=== PATIENT | male | born 1960 | race Caucasian/White ===

== ENCOUNTER 2023-02-17 12:11 | Emergency (ER) | payer BC, MEDICARE, SELFPAY ==
[2023-02-17 12:12] VITALS: BP 110/78; PULSE 108; RESP 14; TEMP 36.6; O2SAT 97
--- NOTE | 2023-02-17 12:45 | RAD_ITS ---
STUDY: X-RAY CHEST REASON FOR EXAM: Male, 62 years old. Dyspnea TECHNIQUE: PA and lateral views of the chest. COMPARISON: None. FINDINGS: Lungs are expanded with diffuse perihilar opacification suggesting bronchitis or perihilar infiltrates. Small bilateral pleural effusions are present. Follow-up recommended to assure resolution. Normal size heart. Normal mediastinum and andre. Normal visualized pulmonary arteries. Normal visualized aortic arch and descending thoracic aorta. There are diffuse degenerative changes of the visualized thoracic spine. Normal visualized ribs, clavicles, and shoulders. There is no demonstrated abnormality of the visualized soft tissue structures of the upper abdomen.-Neuro stimulator leads project over the lower thoracic spine RAD/Chest PA and Lateral IMPRESSION: Symmetric perihilar opacifications suggest CHF, bronchitis, or infiltrates. There are associated pleural effusions. Follow-up recommended to assure resolution Electronically Signed: Brian Truong MD at 13:18 EST ,
[2023-02-17 12:55] LABS: Absolute Lymphocyte Count 1.03 X10^3/uL (0.83-4.51); Absolute Neutrophil Count 3.9 X10^3/uL (2.0-7.7); Basophil# 0.09 X10^3/uL; Basophil% 1.6 % (0-1); Eosinophil# 0.16 X10^3/uL; Eosinophils% 2.8 % (0-5); Hematocrit 43.4 % (40-54); Hemoglobin 13.7 g/dL (13.0-16.5); Lymphocyte # 1.03 X10^3/ul (0.83-4.51); Lymphocyte % 18.2 % (19-41); Mean Corp Hgb Conc 31.6 g/dL (32-36); Mean Corpuscular Hgb 29.9 pg (27.0-32.0); Mean Corpuscular Volume 94.8 fL (80-94); Mean Platelet Vol. 10.4 fl (6.2-12.0); Monocyte# 0.46 X10^3/uL; Monocyte% 8.1 % (0-10); NRBC Flagged by Analyzer 0 % (0-5); Neutrophil # 3.89 X10^3/uL (2.7-7.7); Neutrophil % 68.9 % (47-70); Platelet Count 278 K/mm3 (150-450); RBC Distribution Width CV 15.1 % (11.6-14.6); RBC Distribution Width SD 51.5 fl (35.1-43.9); Red Blood Count 4.58 M/mm3 (4.6-6.2); White Blood Count 5.7 K/mm3 (4.4-11.0)
[2023-02-17 13:08] LABS: Anion Gap 6 (5-15); BUN 28 mg/dL (7-18); BUN/Creat Ratio 29.2 RATIO (10-20); Calcium,Total 9.3 mg/dL (8.5-10.1); Chloride 103 mmol/L (98-107); Creatinine, Serum 0.96 mg/dL (0.70-1.30); EST Glomerular Filtration Rate 85 mL/min (>60); Est Glom Filt Rate - Afr Amer 102 mL/min (>60); Glucose 169 mg/dL (74-106); Potassium 4.3 mmol/L (3.5-5.1); Sodium Level 136 mmol/L (136-145); Troponin-I HS 24 pg/mL (3.0-78.0)
[2023-02-17 13:33] VITALS: BP 108/71; PULSE 99; RESP 16; TEMP 36.9; O2SAT 92
--- NOTE | 2023-02-17 13:45 | EDS_ITS ---
HPI History of Present Illness Chief Complaint: Shortness of Breath [facility] Medical History (Updated 02/17/23 @ 14:[address] Ezequiel Jimenez MD) Diabetes Home Medications Oxycodone-Acetaminophn 5-325/5 1 - 2 tab PO BID 01/10/16 [History Last Taken Unknown] pregabalin 100 mg capsule (Lyrica) 100 mg PO TID 01/10/16 [History Last Taken 01/14/16 07:30] furosemide 20 mg tablet (Lasix) 20 mg PO DAILY #30 tabs 02/17/23 [Rx Last Taken Unknown] Allergy/AdvReac Type Severity Reaction Status Date / Time No Known Allergies Allergy Verified 02/17/23 12:12 Social History Smoking Status: Never smoker EXAM Physical Exam Const Vital Signs: 02/17/23 12:12 02/17/23 12:55 02/17/23 13:33 Temperature 98 F 98.5 F Temperature Source Temporal Oral Pulse Rate 108 H 99 Respiratory Rate 14 16 Respiratory Effort Short of Breath Respiratory Depth Normal Respiratory Pattern Normal Blood Pressure 110/78 108/71 Blood Pressure Mean 88 83 Pulse Ox 97 92 Oxygen Delivery Method Room Air Room Air MDM MDM MDM Narrative Medical decision making narrative: Second-degree there is right gluteal crease/proximal posterior right thigh. There is no evidence infection i.e. erythema, warmth induration or cloudy discharge. Since patient is diabetic we will obtain BMP to assess glucose and anion gap. CBC to assess white count differential. Because he complains of dyspnea is a poorly controlled diabetic we will obtain troponin to evaluate for anginal equivalent dyspnea. Chest x-ray to rule out any pulmonary cause or evidence of CHF i.e. or pneumonia. Lab Data Attestation: I reviewed the patient's lab results. Lab results narrative: CBC is unremarkable basic metabolic panel is marked for glucose of 169 with a normal CO2 anion gap. BUN to creatinine ratio is elevated at approximately 30- 1. Labs: Laboratory Results - last 24 hr 02/17/23 02/17/23 12:35 13:29 WBC 5.7 RBC 4.58 L Hgb 13.7 Hct 43.4 MCV 94.8 H MCH 29.9 MCHC 31.6 L RDW Std Deviation 51.5 H RDW Coeff of Conchis 15.1 H Plt Count 278 MPV 10.4 Immature Gran % (Auto) 0.400 Neut % (Auto) 68.9 Lymph % (Auto) 18.2 L Moody % (Auto) 8.1 Eos % (Auto) 2.8 Baso % (Auto) 1.6 H Absolute Neuts (auto) 3.9 Absolute Lymphs (auto) 1.03 Nucleated RBC % 0 Sodium 136 Potassium 4.3 Chloride 103 Carbon Dioxide 27.0 Anion Gap 6 BUN 28 H Creatinine 0.96 Est GFR (MDRD) Af Amer 102 Est GFR (MDRD) Non-Af 85 BUN/Creatinine Ratio 29.2 H Glucose 169 H Calcium 9.3 Troponin I High Sens 24 POC Glucose 150 H Radiography Chest X-Ray - ED: 2 View and Read by ED Physician (Chest x-ray was reviewed by me. Patient has interstitial fluffiness in the area of the right middle lobe. There may represent CHF. Since patient denies cough fever doubt pneumonia. There is small associated effusion noted on the right.) Diagnostic Testing: Clinical Impression(s) from Imaging Studies Chest X-Ray 02/17/23 12:45 IMPRESSION: Symmetric perihilar opacifications suggest CHF, bronchitis, or infiltrates. There are associated pleural effusions. Follow-up recommended to assure resolution Electronically Signed: Brian Truong MD at 13:18 EST , EKG Initial EKG: Attestation: I personally reviewed and interpreted this EKG as follows: Interpretation: Sinus Tachycardia (Medicine upon Tylenol rate is 102. VT interval is 194 ms. QRS duration 144 ms and has morphology of right bundle branch block. QT duration is 380 ms. [place] is to the left. The ST segment abnormality noted in the anterolateral leads is all likelihood due to the right bundle branch block. .) Treatment and Re-Evaluation :: Week of symptoms and normal troponin suspect this represents congestive heart failure. Patient will need outpatient follow-up. He is not on a diuretic will discharge with prescription for Lasix. He also needs to keep his appointment with wound center for these stage II decubitus noted near the right buttocks crease/posterior proximal right thigh. Discharge Plan Triage Chief Complaint: Shortness of Breath ED Provider: Ezequiel Jimenez Dx/Rx/DC Orders Clinical Impression: Decubitus ulcer of buttock, stage 2, Congestive heart failure, Controlled type 2 diabetes mellitus with hyperglycemia, Pleural effusion, right Instructions: ED Heart Failure, Congestive (CHF), ED Pressure Injury, Simple Prescriptions: New furosemide [Lasix] 20 mg tablet 20 mg PO DAILY Qty: 30 0RF No Action pregabalin [Lyrica] 100 MG capsule 100 mg PO TID Oxycodone-Acetaminophn 5-325/5 1 - 2 tab PO BID Primary Care Provider: Damián Garcia Referrals: Damián Garcia MD [Primary Care Provider] - 5-7 Days Disposition Disposition: Home, Self Care
[2023-02-17 13:48] LABS: Bedside Glucose 150 mg/dL (74-106)
[2023-02-17 14:11] VITALS: BP 117/87; PULSE 101; PULSE 102; RESP 16; O2SAT 95
== END 2023-02-17 15:00 | disposition home or self-care (01) ==
PROVIDERS: Emergency Provider Emergency Medicine; PCP Family Medicine; Visit Provider Emergency Medicine
DX: I50.9 Heart failure, unspecified (principal); L89.312 Pressure ulcer of right buttock, stage 2; E11.65 Type 2 diabetes mellitus with hyperglycemia; Z79.899 Other long term (current) drug therapy
CPT/HCPCS: 71046; 80048; 82962; 84484; 85025; 93005; 99284

== ENCOUNTER 2023-02-24 09:47 | Outpatient (RCR) | payer BC, MEDICARE, SELFPAY ==
[2023-02-24 10:21] VITALS: BP 129/78; PULSE 106; RESP 18; TEMP 36.1; BMI 41.5
--- NOTE | 2023-02-24 13:13 | PCM.WC.HP ---
History of Present Illness Date of Service: 02/24/23 Chief Complaint: Stage II right ischial pressure ulceration History of Wound: This is a 62-year-old obese diabetic male with a history of spinal cord injury which resulted from lumbar disc surgery more than 20 years ago. As result, the patient's mobility has been severely restricted, and he spends a great time each day sitting in his wheelchair. He has difficulty ambulating, though is able to drive an automobile. Approximately 10 weeks prior to his current admission, patient developed an ulceration in the right ischial area. He and family members have been treating with topical antibiotic ointment. He lives alone, but has nearby family members who are able to assist him in his daily needs. In addition to diabetes mellitus, the patient also suffers from multiple other pre-existing medical conditions, which are listed below. The patient has recently undergone laboratory studies, performed on 02/17/2023, with results as follows: White blood count 5.7, hemoglobin 13.7, hematocrit 43.4, platelets 278,000, sodium 136, potassium 4.3, chloride 103, BUN 28, creatinine 0.96, glucose 169, calcium 9.3, glucose 150. A recent chest x-ray has revealed bilateral small pleural effusions. An EKG revealed sinus tachycardia, left axis deviation, right bundle branch block, and an infarct of indeterminate age. REPLACED BY [facility] Medical History Debility Diabetes History of spinal cord injury Hyperlipidemia Immobility Lumbar radiculopathy, chronic Morbid obesity with BMI of 40.0-44.9, adult Neurogenic bladder Obstructive sleep apnea Peripheral neuropathy Pressure ulcer of ischium, stage 2 Urinary incontinence Home Medications Oxycodone-Acetaminophn 5-325/5 1 - 2 tab PO BID 01/10/16 [History Last Taken Unknown] pregabalin 100 mg capsule (Lyrica) 100 mg PO TID 01/10/16 [History Last Taken 01/14/16 07:30] furosemide 20 mg tablet (Lasix) 20 mg PO DAILY #30 tabs 02/17/23 [Rx Last Taken Unknown] Allergy/AdvReac Type Severity Reaction Status Date / Time No Known Allergies Allergy Verified 02/17/23 12:12 Surgical History History of back surgery History of rotator cuff surgery S/P ORIF (open reduction internal fixation) fracture Social History (Updated 02/24/23 @ 13:[address] Ant Bryan MD) Smoking Status: Never smoker Smokeless tobacco user: chewing tobacco Vital Signs Vital Signs Vital Signs: 02/24/23 10:21 Temperature 97 F L Temperature Source Temporal Pulse Rate 106 H Respiratory Rate 18 Blood Pressure 129/78 H Blood Pressure Mean 95 Blood Pressure Source Monitor Blood Pressure Position Supine Blood Pressure Location Right Arm Oxygen Delivery Method Room Air Weight Weight: 290 lb Body Mass Index (BMI) 41.5 Physical Exam Const alert, oriented x3 and no apparent distress Constitutional Narrative: Debility is noted. Patient appears to be somewhat physically deconditioned. General Appearance: cooperative, comfortable and well developed Orientation / Consciousness: awake, oriented to person, oriented to place and oriented to time HEENT normocephalic and head/scalp atraumatic Head and Scalp: normal to inspection, normocephalic and atraumatic External Ear: external ears normal Eyes PERRL and EOMs intact bilaterally General Eye: normal appearance of both eyes Resp normal respiratory effort, normal air movement, no retractions and no use of accessory muscles Effort and Inspection: able to speak in complete sentences Extremity no calf tenderness General Extremity: Negative for clubbing or cyanosis Skin Wound Narrative: Inspection of the buttock area reveals a stage II right ischial pressure ulceration. It is generally pink and healthy in appearance. There is no associated erythema. There is no obvious infection or cellulitis. Dimensions are documented elsewhere. Neuro oriented x3 and CN's II-XII intact bilaterally Sensorium / Orientation: awake, alert, oriented to person, oriented to place and oriented to time Psych Appearance: grossly normal and appropriate Attitude: calm Activity / Motor Behavior: appropriate eye contact Speech: normal speech Mood & Affect: euthymic mood Thought Process: normal thought process Thought Content: normal thought content Attention / Concentration: attention grossly intact Debridement Note Debridement Note No debridement was completed: No debridement was completed today Post-Debridement Measurements and Additional Note: Post-Debridement Measurements/Treatment WC - Nurse 1 - General Ulcer Assessment Start: 02/24/23 10:07 Freq: Status: Active Protocol: [email or web address] Activity Type Activity Date Activity User E-sign Co-sign Detail Recorded Client Recorded Date Recorded By Document 02/24/23 10:21 MT Desktop 02/24/23 10:32 NM 02/24/23 10:21 - Today's Visit Information Type of service Initial Visit Arrival Mode Ambulatory Accompanied by Suzi Patient Identification Verified (Name & Yes ) Safety Precautions Fall Prevention Finger Stick Blood Sugar(mg/dl) (if 131 indicated): Blood Sugar Stated by Patient Height and Weight Height 5 ft 10 in Weight 290 lb Weight in Pounds 290.0 lbs Weight Measurement Method Stated by Patient Body Mass Index (BMI) 41.5 BMI Classification Obese BSA - Zane 2.44 Vital Signs Temperature (97.8 F-99.1 F) 97 F L Temperature Source Temporal Pulse Rate (60-100) 106 H Pulse Location Monitor Respiratory Rate (12-18) 18 Respiratory rate source Observation Oxygen Delivery Method Room Air Blood Pressure (90/60-120/80) 129/78 H Blood Pressure Mean 95 Source Monitor Position Supine Blood Pressure Location Right Arm History Since Last Visit- (Skip if this is Patient's initial visit) Has dressing in place as prescribed No Has compression in place as prescribed N/A Has offloadiing in place as prescribed N/A Experienced any changes in pain level or No management Left Footwear Regular Shoe Right Footwear Regular Shoe Pain Scale: 0-10 Numeric Is Patient Pain Free? Yes - Nurse 1 - General Ulcer Measurement Start: 02/24/23 10:07 Freq: Status: Active Protocol: Activity Type Activity Date Activity User E-sign Co-sign Detail Recorded Client Recorded Date Recorded By Document 02/24/23 10:21 NM [employer] 02/24/23 10:32 NM 02/24/23 10:21 Wound Center Nurse 1 #1 R Lower Buttock -Current Size (cm) - Length 4 -Current Size (cm) - Width 3 -Current Size (cm) - Depth 0.1 -Total Square Cm 12 -Date of Last Picture (Recall this 02/24/23 field) -Photo Taken Yes -Tunneling Yes -Tunneling Position (O'clock) 1 -Tunneling Distance (cm) 0.2 -Undermining/Tunneling No -Circular Undermining No -Exudate Amt Medium -Exudate Type Serosanguineous -Wound Margin Flat & Intact -Granulation Amt Large (67-100%) -Granulation Quality Pale,[place] -Slough/Fibrin No -Texture (Traci-wound Skin Appearance) Assessed -Moisture (Traci-wound Skin Appearance) Assessed, Maceration -Color (Tarci-wound Skin Appearance) Assessed -Temperature (Traci-wound Skin No Abnormality Appearance) (Pt Warm) -Tenderness on Palpation (Traci-wound No Skin Appearance) -Ulcer Cleansing Soap and Water -Foul Odor after Cleansing No -Anesthetic Used 5% Lidocaine Gel Lower Limb Edema Present NA WC - Nurse 2 - General Ulcer CM Notes Start: 02/24/23 10:07 Freq: Status: Active Protocol: Activity Type Activity Date Activity User E-sign Co-sign Detail Recorded Client Recorded Date Recorded By Document 02/24/23 12:46 PL [email or web address] 02/24/23 12:48 PL 02/24/23 12:46 Wound Center Nurse 2 #1 R Lower Buttock -Time 10:40 -Correct Patient Yes -Correct Side, Site, Position Yes -Correct Procedure Yes -Procedure Performed No -Post Debridement (cm) - Length 4.0 -Post Debridement (cm) - Width 3.0 -Post Debridement (cm) - Depth 0.1 -Total Square (Post) (cm) 12.00 -Tunneling No -Undermining/Tunneling No -Circular Undermining No -Wound/Ulcer Outcome Not Healed -Ulcer Cleansing Rinsed/ Irrigated with Saline -Foul Odor after Cleansing No -Bioengineered Tissue No Pain Scale: 0-10 Numeric Is Patient Pain Free? Yes - Nurse 3 - General Ulcer D/C NN Start: 02/24/23 10:07 Freq: Status: Active Protocol: Activity Type Activity Date Activity User E-sign Co-sign Detail Recorded Client Recorded Date Recorded By Document 02/24/23 12:46 PL [id number] 02/24/23 12:48 PL 02/24/23 12:46 Is Patient Pain Free? Yes Wound Care Center Nurse 3 #1 R Lower Buttock -Ulcer Cleansing Rinsed/ Irrigated with Saline -Foul Odor after Cleansing No -Primary Dressing Applied C Hydrogel ($), Mepilex Border -Mepilex Border 2 WC - Visit Discharge Discharge Condition Stable Ambulatory Status Wheelchair Transportation Private Auto Assessment/Plan Assessment/Plan (1) Pressure ulcer of ischium, stage 2: CODE(S): L89.302 - Pressure ulcer of unspecified buttock, stage 2 QUALIFIERS: Laterality: right Qualified Code(s): L89.312 - Pressure ulcer of right buttock, stage 2 (2) Controlled type 2 diabetes mellitus with hyperglycemia: CODE(S): E11.65 - Type 2 diabetes mellitus with hyperglycemia (3) Debility: CODE(S): R53.81 - Other malaise (4) Immobility: CODE(S): Z74.09 - Other reduced mobility (5) Congestive heart failure: CODE(S): I50.9 - Heart failure, unspecified (6) Obstructive sleep apnea: CODE(S): G47.33 - Obstructive sleep apnea (adult) (pediatric) (7) Hyperlipidemia: CODE(S): E78.5 - Hyperlipidemia, unspecified (8) Urinary incontinence: CODE(S): R32 - Unspecified urinary incontinence (9) Lumbar radiculopathy, chronic: CODE(S): M54.16 - Radiculopathy, lumbar region (10) Neurogenic bladder: CODE(S): N31.9 - Neuromuscular dysfunction of bladder, unspecified (11) Morbid obesity with BMI of 40.0-44.9, adult: CODE(S): E66.01 - Morbid (severe) obesity due to excess calories; Z68.41 - Body mass index [BMI] 40.0-44.9, adult (12) Peripheral neuropathy: CODE(S): G62.9 - Polyneuropathy, unspecified (13) History of spinal cord injury: CODE(S): Z87.828 - Personal history of other (healed) physical injury and trauma (14) History of back surgery: CODE(S): Z98.890 - Other specified postprocedural states (15) History of rotator cuff surgery: CODE(S): Z98.890 - Other specified postprocedural states (16) S/P ORIF (open reduction internal fixation) fracture: CODE(S): Z98.890 - Other specified postprocedural states; Z87.81 - Personal history of (healed) traumatic fracture PLAN: Plan This is a 62-year-old diabetic male who presented with a stage II right ischial pressure ulceration. He was noted to spend long hours each day sitting in his wheelchair. He has been counseled as to the appropriate offloading measures. These measures have been discussed with the patient and his niece, at the bedside, in great detail. He has been encouraged to reposition frequently. The decubitus position, supine or prone position, are all favorable to sitting. We are to request a Roho cushion for use when the patient has a need to sit or to remain in his wheelchair. Patient has been encouraged to optimize his nutritional intake, as well as to optimize his glycemic control. He is to avoid moisture accumulation in his undergarments when unable to control his urine. We are to implement the use of collagen hydrogel topically, which was applied on a daily basis. The patient and his niece have been instructed in the appropriate means of application. A foam dressing is to be also applied. The patient is to return for reevaluation in 1 week. Total time: 46 minutes
== END 2023-02-26 23:59 | disposition home or self-care (01) ==
LOC: WC 09:47
PROVIDERS: PCP Family Medicine; Referring Provider Family Medicine; Visit Provider Surgery
DX: L89.312 Pressure ulcer of right buttock, stage 2 (principal); I50.9 Heart failure, unspecified; E11.65 Type 2 diabetes mellitus with hyperglycemia; E11.42 Type 2 diabetes mellitus with diabetic polyneuropathy; E66.01 Morbid (severe) obesity due to excess calories; Z68.41 Body mass index [BMI] 40.0-44.9, adult; R32 Unspecified urinary incontinence; N31.9 Neuromuscular dysfunction of bladder, unspecified; Z74.09 Other reduced mobility; M54.16 Radiculopathy, lumbar region; R53.81 Other malaise; E78.5 Hyperlipidemia, unspecified; G47.33 Obstructive sleep apnea (adult) (pediatric); Z79.84 Long term (current) use of oral hypoglycemic drugs; Z79.899 Other long term (current) drug therapy
CPT/HCPCS: 99213; G0463

== ENCOUNTER 2023-03-17 10:30 | Outpatient (RCR) | payer BC, MEDICARE, SELFPAY ==
[2023-02-27 00:52] VITALS: BP 129/78; PULSE 106; RESP 18; TEMP 36.1; BMI 41.5
[2023-03-03 10:28] VITALS: BP 145/101; PULSE 118; RESP 20; TEMP 35.9; BMI 41.5
--- NOTE | 2023-03-03 13:17 | HP.PCM_ITS ---
History of Present Illness Date of Service: 03/03/23 Chief Complaint: Stage II right ischial pressure ulceration History of Wound: This is a 62-year-old obese diabetic male with a history of spinal cord injury which resulted from lumbar disc surgery more than 20 years ago. As result, the patient's mobility has been severely restricted, and he spends a great time each day sitting in his wheelchair. He has difficulty ambulating, though is able to drive an automobile. Approximately 10 weeks prior to his current admission, patient developed an ulceration in the right ischial area. He and family members have been treating with topical antibiotic ointment. He lives alone, but has nearby family members who are able to assist him in his daily needs. In addition to diabetes mellitus, the patient also suffers from multiple other pre-existing medical conditions, which are listed below. The patient has recently undergone laboratory studies, performed on 02/17/2023, with results as follows: White blood count 5.7, hemoglobin 13.7, hematocrit 43.4, platelets 278,000, sodium 136, potassium 4.3, chloride 103, BUN 28, creatinine 0.96, glucose 169, calcium 9.3, glucose 150. A recent chest x- ray has revealed bilateral small pleural effusions. An EKG revealed sinus tachycardia, left axis deviation, right bundle branch block, and an infarct of indeterminate age. [facility] Medical History Debility Diabetes History of spinal cord injury Hyperlipidemia Immobility Lumbar radiculopathy, chronic Morbid obesity with BMI of 40.0-44.9, adult Neurogenic bladder Obstructive sleep apnea Peripheral neuropathy Pressure ulcer of ischium, stage 2 Urinary incontinence Home Medications Oxycodone-Acetaminophn 5-325/5 1 - 2 tab PO BID 01/10/16 [History Last Taken Unknown] pregabalin 100 mg capsule (Lyrica) 100 mg PO TID 01/10/16 [History Last Taken 02/24/23] furosemide 20 mg tablet (Lasix) 20 mg PO DAILY #30 tabs 02/17/23 [Rx Last Taken 02/24/23] metformin 500 mg tablet 500 mg PO BID 02/24/23 [History Last Taken Unknown] Allergy/AdvReac Type Severity Reaction Status Date / Time No Known Allergies Allergy Verified 02/17/23 12:12 Surgical History History of back surgery History of rotator cuff surgery S/P ORIF (open reduction internal fixation) fracture Social History Smoking Status: Never smoker Smokeless tobacco user: chewing tobacco Vital Signs Vital Signs Vital Signs: 03/03/23 10:28 Temperature 96.7 F L Temperature Source Temporal Pulse Rate 118 H Respiratory Rate 20 H Blood Pressure 145/101 H Blood Pressure Mean 115 Blood Pressure Source Monitor Weight Weight: 290 lb Body Mass Index (BMI) 41.5 Physical Exam Const alert, oriented x3 and no apparent distress Constitutional Narrative: Debility is noted. Patient appears to be somewhat physically deconditioned. General Appearance: cooperative, comfortable and well developed Orientation / Consciousness: awake, oriented to person, oriented to place and oriented to time HEENT normocephalic and head/scalp atraumatic Head and Scalp: normal to inspection, normocephalic and atraumatic External Ear: external ears normal Eyes PERRL and EOMs intact bilaterally General Eye: normal appearance of both eyes Resp normal respiratory effort, normal air movement, no retractions and no use of accessory muscles Effort and Inspection: able to speak in complete sentences Extremity no calf tenderness General Extremity: Negative for clubbing or cyanosis Skin Wound Narrative: Inspection of the buttock area reveals a stage II right ischial pressure ulceration. It is generally pink and healthy in appearance. There is no associated erythema. There is no obvious infection or cellulitis. Dimensions are documented elsewhere. The ulceration visually appears to have increased in size since the patient's visit 1 week ago. Neuro oriented x3 and CN's II-XII intact bilaterally Sensorium / Orientation: awake, alert, oriented to person, oriented to place and oriented to time Psych Appearance: grossly normal and appropriate Attitude: calm Activity / Motor Behavior: appropriate eye contact Speech: normal speech Mood & Affect: euthymic mood Thought Process: normal thought process Thought Content: normal thought content Attention / Concentration: attention grossly intact Debridement Note Debridement Note Wound debrided: Stage II right ischial pressure ulceration Laterality: Right Wound Grade/Stage: Stage II Type of Debridement: Excisional debridement Anesthesia Used: 5% Lidocaine Gel Depth: Down to and including healthy tissue and in the subcutaneous layer Percentage of wound debrided: 100 Instrument Used: 5mm curette Severity: Fat Layer Exposed Bleeding Controlled with: Compression and gauze Patient tolerated procedure: Patient tolerated procedure well Post-Debridement Measurements and Additional Note: Post-Debridement Measurements/Treatment - Nurse 1 - General Ulcer Assessment Start: 03/03/23 10:28 Freq: Status: Active Protocol: SAHRA Activity Type Activity Date Activity User E-sign Co-sign Detail Recorded Client Recorded Date Recorded By Document 03/03/23 10:28 DL [employer] 03/03/23 10:33 DL 03/03/23 10:28 WC - Today's Visit Information Type of service Follow-up Visit (Physician/[employer] ) Arrival Mode Ambulatory Transfer Assistance None Height and Weight Body Mass Index (BMI) 41.5 BMI Classification Obese Vital Signs Temperature (97.8 F-99.1 F) 96.7 F L Temperature Source Temporal Pulse Rate (60-100) 118 H Pulse Location Monitor Respiratory Rate (12-18) 20 H Respiratory rate source Observation Blood Pressure (90/60-120/80) 145/101 H Blood Pressure Mean 115 Source Monitor History Since Last Visit- (Skip if this is Patient's initial visit) Have you changed medications since your No last visit? Any new allergies or adverse reactions No Had a fall/change in ADL's that may No increase risk of falls Signs or symptoms of abuse and/or No neglect since last visit Have you been in the hospital since your No last visit? Has dressing in place as prescribed Yes Has compression in place as prescribed N/A Has offloadiing in place as prescribed Yes Experienced any changes in pain level or No management Pain Scale: 0-10 Numeric Is Patient Pain Free? Yes - Nurse 1 - General Ulcer Measurement Start: 03/03/23 10:28 Freq: Status: Active Protocol: Activity Type Activity Date Activity User E-sign Co-sign Detail Recorded Client Recorded Date Recorded By Document 03/03/23 10:28 TAB [employer] 03/03/23 10:33 DL 03/03/23 10:28 Wound Center Nurse 1 #1 R Lower Buttock -Current Size (cm) - Length 2.7 -Current Size (cm) - Width 1.5 -Current Size (cm) - Depth 0.1 -Total Square Cm 4.05 -Exudate Amt Medium -Exudate Type Serosanguineous -Wound Margin Distinct, Outline Attached -Granulation Amt Medium (34-66%) -Granulation Quality Red -Necrosis Amt Medium (34-66%) -Necrotic Tissue Type Adherent Slough -Structure Exposed N/A -Texture (Traci-wound Skin Appearance) Scarring -Moisture (Traci-wound Skin Appearance) No Abnormality -Color (Traci-wound Skin Appearance) No Abnormality -Temperature (Traci-wound Skin No Abnormality Appearance) (Pt Warm) -Tenderness on Palpation (Traci-wound No Skin Appearance) -Ulcer Cleansing Not Cleansed -Foul Odor after Cleansing No -Anesthetic Used 5% Lidocaine Gel WC - Nurse 2 - General Ulcer CM Notes Start: 03/03/23 10:28 Freq: Status: Active Protocol: Activity Type Activity Date Activity User E-sign Co-sign Detail Recorded Client Recorded Date Recorded By Document 03/03/23 12:53 PL [id number] 03/03/23 12:54 PL 03/03/23 12:53 Wound Center Nurse 2 -Time 10:45 -Correct Patient Yes -Correct Side, Site, Position Yes -Correct Procedure Yes -Procedure Performed Yes -Type of Procedure Debridement -Clinical Debridement Subcutaneous -Tissue Removed Subcutaneous -Post Debridement (cm) - Length 2.7 -Post Debridement (cm) - Width 1.5 -Post Debridement (cm) - Depth 0.1 -Total Square (Post) (cm) 4.05 -Area of Debridement (cm) - Length 2.7 -Area of Debridement (cm) - Width 1.5 -Total Square (Area) (cm) 4.05 -Tunneling No -Undermining/Tunneling No -Circular Undermining No -Wound/Ulcer Outcome Not Healed -Ulcer Cleansing Rinsed/ Irrigated with Saline -Foul Odor after Cleansing No -Bioengineered Tissue No -Bleeding Controlled with Pressure -Treatment Response Procedure Tolerated Well -Debridement - Subq, 1st 20sq cm Yes Pain Scale: 0-10 Numeric Is Patient Pain Free? Yes WC - Nurse 3 - General Ulcer D/C NN Start: 03/03/23 10:28 Freq: Status: Active Protocol: Activity Type Activity Date Activity User E-sign Co-sign Detail Recorded Client Recorded Date Recorded By Document 03/03/23 11:31 DL [id number] 03/03/23 11:31 DL 03/03/23 11:31 Wound Care Center Nurse 3 #1 R Lower Buttock -Ulcer Cleansing Rinsed/ Irrigated with Saline -Foul Odor after Cleansing No -Primary Dressing Applied Mepilex Border, Promogran -Mepilex Border 1 -Promogran 1 Treatment Response Procedure Tolerated Well Pain Scale: 0-10 Numeric Is Patient Pain Free? Yes WC - Visit Discharge Discharge Condition Stable Ambulatory Status Walker, Wheelchair Transportation Private Auto Assessment/Plan Assessment/Plan (1) Pressure ulcer of ischium, stage 2: CODE(S): L89.302 - Pressure ulcer of unspecified buttock, stage 2 QUALIFIERS: Laterality: right Qualified Code(s): L89.312 - Pressure ulcer of right buttock, stage 2 (2) Controlled type 2 diabetes mellitus with hyperglycemia: CODE(S): E11.65 - Type 2 diabetes mellitus with hyperglycemia (3) Debility: CODE(S): R53.81 - Other malaise (4) Immobility: CODE(S): Z74.09 - Other reduced mobility (5) Congestive heart failure: CODE(S): I50.9 - Heart failure, unspecified (6) Obstructive sleep apnea: CODE(S): G47.33 - Obstructive sleep apnea (adult) (pediatric) (7) Hyperlipidemia: CODE(S): E78.5 - Hyperlipidemia, unspecified (8) Urinary incontinence: CODE(S): R32 - Unspecified urinary incontinence (9) Lumbar radiculopathy, chronic: CODE(S): M54.16 - Radiculopathy, lumbar region (10) Neurogenic bladder: CODE(S): N31.9 - Neuromuscular dysfunction of bladder, unspecified (11) Morbid obesity with BMI of 40.0-44.9, adult: CODE(S): E66.01 - Morbid (severe) obesity due to excess calories; Z68.41 - Body mass index [BMI] 40.0-44.9, adult (12) Peripheral neuropathy: CODE(S): G62.9 - Polyneuropathy, unspecified (13) History of spinal cord injury: CODE(S): Z87.828 - Personal history of other (healed) physical injury and trauma (14) History of back surgery: CODE(S): Z98.890 - Other specified postprocedural states (15) History of rotator cuff surgery: CODE(S): Z98.890 - Other specified postprocedural states (16) S/P ORIF (open reduction internal fixation) fracture: CODE(S): Z98.890 - Other specified postprocedural states; Z87.81 - Personal history of (healed) traumatic fracture PLAN: Plan This is a 62-year-old diabetic male who presented with a stage II right ischial pressure ulceration. He was noted to spend long hours each day sitting in his wheelchair. He has been counseled as to the appropriate offloading measures. These measures have been discussed with the patient in great detail. He has been encouraged to reposition frequently. The decubitus position, supine or prone position, are all favorable to sitting. We have arranged for the patient to receive a Roho cushion, which he has now been implementing while sitting. The patient has been encouraged to optimize his nutritional intake, as well as to optimize his glycemic control. He is to avoid moisture accumulation in his undergarments when unable to control his urine. We are to implement the use of Promogran, which will be applied topically on a daily basis. The patient and his family have been instructed in the appropriate means of application. A foam dressing is to be also applied. The patient is to return for reevaluation in 1 week. Total time: 26 minutes
[2023-03-17 10:42] VITALS: BP 139/92; PULSE 82; RESP 18; TEMP 35.5; BMI 41.5
--- NOTE | 2023-03-17 11:03 | HP.PCM_ITS ---
History of Present Illness Date of Service: 03/17/23 Chief Complaint: Stage II right ischial pressure ulceration History of Wound: This is a 62-year-old obese diabetic male with a history of spinal cord injury which resulted from lumbar disc surgery more than 20 years ago. As result, the patient's mobility has been severely restricted, and he spends a great time each day sitting in his wheelchair. He has difficulty ambulating, though is able to drive an automobile. Approximately 10 weeks prior to his current admission, the patient developed an ulceration in the right ischial area. He and family members have been treating with topical antibiotic ointment. He lives alone, but has nearby family members who are able to assist him in his daily needs. In addition to diabetes mellitus, the patient also suffers from multiple other pre-existing medical conditions, which are listed below. The patient has recently undergone laboratory studies, performed on 02/17/2023, with results as follows: White blood count 5.7, hemoglobin 13.7, hematocrit 43.4, platelets 278,000, sodium 136, potassium 4.3, chloride 103, BUN 28, creatinine 0.96, glucose 169, calcium 9.3, glucose 150. A recent chest x- ray has revealed bilateral small pleural effusions. An EKG revealed sinus tachycardia, left axis deviation, right bundle branch block, and an infarct of indeterminate age. [facility] Medical History Debility Diabetes History of spinal cord injury Hyperlipidemia Immobility Lumbar radiculopathy, chronic Morbid obesity with BMI of 40.0-44.9, adult Neurogenic bladder Obstructive sleep apnea Peripheral neuropathy Pressure ulcer of ischium, stage 2 Urinary incontinence Home Medications Oxycodone-Acetaminophn 5-325/5 1 - 2 tab PO BID 01/10/16 [History Last Taken Unknown] pregabalin 100 mg capsule (Lyrica) 100 mg PO TID 01/10/16 [History Last Taken 02/24/23] furosemide 20 mg tablet (Lasix) 20 mg PO DAILY #30 tabs 02/17/23 [Rx Last Taken 02/24/23] metformin 500 mg tablet 500 mg PO BID 02/24/23 [History Last Taken Unknown] Allergy/AdvReac Type Severity Reaction Status Date / Time No Known Allergies Allergy Verified 11/21/23 12:12 Surgical History History of back surgery History of rotator cuff surgery S/P ORIF (open reduction internal fixation) fracture Social History Smoking Status: Never smoker Smokeless tobacco user: chewing tobacco Vital Signs Vital Signs Vital Signs: 03/17/23 10:42 Temperature 96 F L Temperature Source Temporal Pulse Rate 82 Respiratory Rate 18 Blood Pressure 139/92 H Blood Pressure Mean 107 Blood Pressure Source Monitor Blood Pressure Position Semi-Fowlers Blood Pressure Location Left Arm Weight Weight: 290 lb Body Mass Index (BMI) 41.5 Physical Exam Const alert, oriented x3 and no apparent distress Constitutional Narrative: Debility is noted. Patient appears to be somewhat physically deconditioned. General Appearance: cooperative, comfortable and well developed Orientation / Consciousness: awake, oriented to person, oriented to place and oriented to time HEENT normocephalic and head/scalp atraumatic Head and Scalp: normal to inspection, normocephalic and atraumatic External Ear: external ears normal Eyes PERRL and EOMs intact bilaterally General Eye: normal appearance of both eyes Resp normal respiratory effort, normal air movement, no retractions and no use of accessory muscles Effort and Inspection: able to speak in complete sentences Extremity no calf tenderness General Extremity: Negative for clubbing or cyanosis Skin Wound Narrative: Inspection of the buttock area reveals a stage II right ischial pressure ulceration. It is generally pink and healthy in appearance. There is no associated erythema. There is no obvious infection or cellulitis. Dimensions are documented elsewhere. The ulceration has diminished in size since the fatoumata ramsey's visit 1 week ago. Neuro oriented x3 and CN's II-XII intact bilaterally Sensorium / Orientation: awake, alert, oriented to person, oriented to place and oriented to time Psych Appearance: grossly normal and appropriate Attitude: calm Activity / Motor Behavior: appropriate eye contact Speech: normal speech Mood & Affect: euthymic mood Thought Process: normal thought process Thought Content: normal thought content Attention / Concentration: attention grossly intact Debridement Note Debridement Note Wound debrided: Stage II right ischial pressure ulceration Laterality: Right Wound Grade/Stage: Stage II Type of Debridement: Excisional debridement Anesthesia Used: 5% Lidocaine Gel Depth: Down to and including healthy tissue and in the subcutaneous layer Percentage of wound debrided: 100 Instrument Used: 5mm curette Severity: Fat Layer Exposed Bleeding Controlled with: Compression and gauze Patient tolerated procedure: Patient tolerated procedure well Post-Debridement Measurements and Additional Note: Post-Debridement Measurements/Treatment WC - Nurse 1 - General Ulcer Assessment Start: 03/03/23 10:28 Freq: Status: Active Protocol: SAHRA Activity Type Activity Date Activity User E-sign Co-sign Detail Recorded Client Recorded Date Recorded By Document 03/03/23 10:28 DL Desktop 03/03/23 10:33 DL Document 03/17/23 10:42 RB Desktop 03/17/23 10:44 RB 03/03/23 03/17/23 10:28 10:42 WC - Today's Visit Information Type of service Follow-up Visit Follow-up Visit (Physician/OWNER CONSULTING ENGINEER (Physician/OWNER CONSULTING ENGINEER ) ) Arrival Mode Ambulatory Ambulatory Transfer Assistance None None Patient Identification Verified (Name & Yes ) Patient Requires Transmission-Based No Precautions Height and Weight Body Mass Index (BMI) 41.5 41.5 BMI Classification Obese Obese Vital Signs Temperature (97.8 F-99.1 F) 96.7 F L 96 F L Temperature Source Temporal Temporal Pulse Rate (60-100) 118 H 82 Pulse Location Monitor Monitor Respiratory Rate (12-18) 20 H 18 Respiratory rate source Observation Observation Blood Pressure (90/60-120/80) 145/101 H 139/92 H Blood Pressure Mean 115 107 Source Monitor Monitor Position Semi-Fowlers Blood Pressure Location Left Arm History Since Last Visit- (Skip if this is Patient's initial visit) Have you changed medications since your No No last visit? Any new allergies or adverse reactions No No Had a fall/change in ADL's that may No No increase risk of falls Signs or symptoms of abuse and/or No No neglect since last visit Have you been in the hospital since your No No last visit? Has dressing in place as prescribed Yes Yes Has compression in place as prescribed N/A No Has offloadiing in place as prescribed Yes No Experienced any changes in pain level or No No management Pain Scale: 0-10 Numeric Is Patient Pain Free? Yes Yes FRANCISCO Wall Nurse 1 - General Ulcer Measurement Start: 03/03/23 10:28 Freq: Status: Active Protocol: Activity Type Activity Date Activity User E-sign Co-sign Detail Recorded Client Recorded Date Recorded By Document 03/03/23 10:28 DL Desktop 03/03/23 10:33 DL Document 03/17/23 10:42 RB Desktop 03/17/23 10:44 RB 03/03/23 03/17/23 10:28 10:42 Wound Center Nurse 1 #1 R Lower Buttock -Combined with other wound No -Current Size (cm) - Length 2.7 2.5 -Current Size (cm) - Width 1.5 0.7 -Current Size (cm) - Depth 0.1 0.1 -Total Square Cm 4.05 1.75 -Tunneling No -Undermining/Tunneling No -Circular Undermining No -Exudate Amt Medium Medium -Exudate Type Serosanguineous Serosanguineous -Wound Margin Distinct, Distinct, Outline Outline Attached Attached -Granulation Amt Medium (34-66%) Medium (34-66%) -Granulation Quality [place] -Slough/Fibrin Yes -Necrosis Amt Medium (34-66%) Medium (34-66%) -Necrotic Tissue Type Adherent Slough Adherent Slough -Structure Exposed N/A N/A -Texture (Traci-wound Skin Appearance) Scarring Assessed, Scarring -Moisture (Traci-wound Skin Appearance) No Abnormality Assessed -Color (Traci-wound Skin Appearance) No Abnormality Assessed -Temperature (Traci-wound Skin No Abnormality No Abnormality Appearance) (Pt Warm) (Pt Warm) -Tenderness on Palpation (Traci-wound No No Skin Appearance) -Ulcer Cleansing Not Cleansed Wound Cleanser -Foul Odor after Cleansing No No -Anesthetic Used 5% Lidocaine 5% Lidocaine Gel Gel WC - Nurse 2 - General Ulcer CM Notes Start: 03/03/23 10:28 Freq: Status: Active Protocol: Activity Type Activity Date Activity User E-sign Co-sign Detail Recorded Client Recorded Date Recorded By Document 03/03/23 12:53 PL [id number] 03/03/23 12:54 PL 03/03/23 12:53 Wound Center Nurse 2 -Time 10:45 -Correct Patient Yes -Correct Side, Site, Position Yes -Correct Procedure Yes -Procedure Performed Yes -Type of Procedure Debridement -Clinical Debridement Subcutaneous -Tissue Removed Subcutaneous -Post Debridement (cm) - Length 2.7 -Post Debridement (cm) - Width 1.5 -Post Debridement (cm) - Depth 0.1 -Total Square (Post) (cm) 4.05 -Area of Debridement (cm) - Length 2.7 -Area of Debridement (cm) - Width 1.5 -Total Square (Area) (cm) 4.05 -Tunneling No -Undermining/Tunneling No -Circular Undermining No -Wound/Ulcer Outcome Not Healed -Ulcer Cleansing Rinsed/ Irrigated with Saline -Foul Odor after Cleansing No -Bioengineered Tissue No -Bleeding Controlled with Pressure -Treatment Response Procedure Tolerated Well -Debridement - Subq, 1st 20sq cm Yes Pain Scale: 0-10 Numeric Is Patient Pain Free? Yes - Nurse 3 - General Ulcer D/C NN Start: 03/03/23 10:28 Freq: Status: Active Protocol: Activity Type Activity Date Activity User E-sign Co-sign Detail Recorded Client Recorded Date Recorded By Document 03/03/23 11:31 DL [id number] 03/03/23 11:31 DL 03/03/23 11:31 Wound Care Center Nurse 3 #1 R Lower Buttock -Ulcer Cleansing Rinsed/ Irrigated with Saline -Foul Odor after Cleansing No -Primary Dressing Applied Mepilex Border, Promogran -Mepilex Border 1 -Promogran 1 Treatment Response Procedure Tolerated Well Pain Scale: 0-10 Numeric Is Patient Pain Free? Yes - Visit Discharge Discharge Condition Stable Ambulatory Status Walker, Wheelchair Transportation Private Auto Assessment/Plan Assessment/Plan (1) Pressure ulcer of ischium, stage 2: CODE(S): L89.302 - Pressure ulcer of unspecified buttock, stage 2 QUALIFIERS: Laterality: right Qualified Code(s): L89.312 - Pressure ulcer of right buttock, stage 2 (2) Controlled type 2 diabetes mellitus with hyperglycemia: CODE(S): E11.65 - Type 2 diabetes mellitus with hyperglycemia (3) Debility: CODE(S): R53.81 - Other malaise (4) Immobility: CODE(S): Z74.09 - Other reduced mobility (5) Congestive heart failure: CODE(S): I50.9 - Heart failure, unspecified (6) Obstructive sleep apnea: CODE(S): G47.33 - Obstructive sleep apnea (adult) (pediatric) (7) Hyperlipidemia: CODE(S): E78.5 - Hyperlipidemia, unspecified (8) Urinary incontinence: CODE(S): R32 - Unspecified urinary incontinence (9) Lumbar radiculopathy, chronic: CODE(S): M54.16 - Radiculopathy, lumbar region (10) Neurogenic bladder: CODE(S): N31.9 - Neuromuscular dysfunction of bladder, unspecified (11) Morbid obesity with BMI of 40.0-44.9, adult: CODE(S): E66.01 - Morbid (severe) obesity due to excess calories; Z68.41 - Body mass index [BMI] 40.0-44.9, adult (12) Peripheral neuropathy: CODE(S): G62.9 - Polyneuropathy, unspecified (13) History of spinal cord injury: CODE(S): Z87.828 - Personal history of other (healed) physical injury and trauma (14) History of back surgery: CODE(S): Z98.890 - Other specified postprocedural states (15) History of rotator cuff surgery: CODE(S): Z98.890 - Other specified postprocedural states (16) S/P ORIF (open reduction internal fixation) fracture: CODE(S): Z98.890 - Other specified postprocedural states; Z87.81 - Persona l history of (healed) traumatic fracture PLAN: Plan This is a 62-year-old diabetic male who presented with a stage II right ischial pressure ulceration. He was noted to spend long hours each day sitting in his wheelchair. He has been counseled as to the appropriate offloading measures. These measures have been discussed with the patient in great detail. He has been encouraged to reposition frequently. The decubitus position, supine or prone position, are all favorable to sitting. We have arranged for the patient to receive a Roho cushion, which he has now been implementing while sitting. The patient has been encouraged to optimize his nutritional intake, as well as to optimize his glycemic control. He is to avoid moisture accumulation in his undergarments when unable to control his urine. We had been using Promogran with a foam dressing topically, but the patient has now voiced his preference for collagen hydrogel. Therefore, we are to utilize collagen hydrogel topically to the right ischial pressure ulceration, which will be applied topically on a daily basis. We will continue with a foam dressing as well. The patient and his family have been instructed in the appropriate means of application. The patient is to return for reevaluation in 1 week. The patient's level of compliance is somewhat questionable. Total time: 25 minutes
== END 2023-03-29 23:59 | disposition home or self-care (01) ==
LOC: WC 10:30
PROVIDERS: PCP Family Medicine; Referring Provider Family Medicine; Visit Provider Surgery
DX: L89.312 Pressure ulcer of right buttock, stage 2 (principal); I50.9 Heart failure, unspecified; E11.65 Type 2 diabetes mellitus with hyperglycemia; E11.42 Type 2 diabetes mellitus with diabetic polyneuropathy; E66.01 Morbid (severe) obesity due to excess calories; Z68.41 Body mass index [BMI] 40.0-44.9, adult; Z74.09 Other reduced mobility; R32 Unspecified urinary incontinence; E78.5 Hyperlipidemia, unspecified; Z79.84 Long term (current) use of oral hypoglycemic drugs; R53.81 Other malaise; M54.16 Radiculopathy, lumbar region; G62.9 Polyneuropathy, unspecified; N31.9 Neuromuscular dysfunction of bladder, unspecified; G47.33 Obstructive sleep apnea (adult) (pediatric); F17.220 Nicotine dependence, chewing tobacco, uncomplicated; Z79.82 Long term (current) use of aspirin; Z79.891 Long term (current) use of opiate analgesic; Z79.899 Other long term (current) drug therapy
CPT/HCPCS: 11042

== ENCOUNTER 2023-04-21 11:00 | Outpatient (RCR) | payer BC, MEDICARE, SELFPAY ==
[2023-03-30 00:25] VITALS: BP 139/92; PULSE 82; RESP 18; TEMP 35.5; BMI 41.5
[2023-04-07 10:29] VITALS: BP 146/74; PULSE 114; RESP 18; TEMP 35.6; BMI 41.5
--- NOTE | 2023-04-07 11:13 | HP.PCM_ITS ---
History of Present Illness Date of Service: 04/07/23 Chief Complaint: Stage II right ischial pressure ulceration History of Wound: This is a 62-year-old obese diabetic male with a history of spinal cord injury which resulted from lumbar disc surgery more than 20 years ago. As result, the patient's mobility has been severely restricted, and he spends a great time each day sitting in his wheelchair. He has difficulty ambulating, though is able to drive an automobile. Approximately 10 weeks prior to his current admission, the patient developed an ulceration in the right ischial area. He and family members have been treating with topical antibiotic ointment. He lives alone, but has nearby family members who are able to assist him in his daily needs. In addition to diabetes mellitus, the patient also suffers from multiple other pre-existing medical conditions, which are listed below. The patient has recently undergone laboratory studies, performed on 02/17/2023, with results as follows: White blood count 5.7, hemoglobin 13.7, hematocrit 43.4, platelets 278,000, sodium 136, potassium 4.3, chloride 103, BUN 28, creatinine 0.96, glucose 169, calcium 9.3, glucose 150. A recent chest x- ray has revealed bilateral small pleural effusions. An EKG revealed sinus tachycardia, left axis deviation, right bundle branch block, and an infarct of indeterminate age. [facility] Medical History Debility Diabetes History of spinal cord injury Hyperlipidemia Immobility Lumbar radiculopathy, chronic Morbid obesity with BMI of 40.0-44.9, adult Neurogenic bladder Obstructive sleep apnea Peripheral neuropathy Pressure ulcer of ischium, stage 2 Urinary incontinence Home Medications Oxycodone-Acetaminophn 5-325/5 1 - 2 tab PO BID 01/10/16 [History Last Taken Unknown] pregabalin 100 mg capsule (Lyrica) 100 mg PO TID 01/10/16 [History Last Taken 02/24/23] furosemide 20 mg tablet (Lasix) 20 mg PO DAILY #30 tabs 02/17/23 [Rx Last Taken 02/24/23] metformin 500 mg tablet 500 mg PO BID 02/24/23 [History Last Taken Unknown] Allergy/AdvReac Type Severity Reaction Status Date / Time No Known Allergies Allergy Verified 11/21/23 12:12 Surgical History History of back surgery History of rotator cuff surgery S/P ORIF (open reduction internal fixation) fracture Social History Smoking Status: Never smoker Smokeless tobacco user: chewing tobacco Vital Signs Vital Signs Vital Signs: 04/07/23 10:29 Temperature 96.0 F L Temperature Source Temporal Pulse Rate 114 H Respiratory Rate 18 Blood Pressure 146/74 H Blood Pressure Mean 98 Blood Pressure Source Monitor Blood Pressure Position Sitting Blood Pressure Location Left Forearm Oxygen Delivery Method Room Air Weight Weight: 290 lb Body Mass Index (BMI) 41.5 Physical Exam Const alert, oriented x3 and no apparent distress Constitutional Narrative: Debility is noted. Patient appears to be somewhat physically deconditioned. General Appearance: cooperative, comfortable and well developed Orientation / Consciousness: awake, oriented to person, oriented to place and oriented to time HEENT normocephalic and head/scalp atraumatic Head and Scalp: normal to inspection, normocephalic and atraumatic External Ear: external ears normal Eyes PERRL and EOMs intact bilaterally General Eye: normal appearance of both eyes Resp normal respiratory effort, normal air movement, no retractions and no use of accessory muscles Effort and Inspection: able to speak in complete sentences Extremity no calf tenderness General Extremity: Negative for clubbing or cyanosis Skin Wound Narrative: Inspection of the buttock area reveals a stage II right ischial pressure ulceration. It is generally pink and healthy in appearance. There is no associated erythema. There is no obvious infection or cellulitis. Dimensions are documented elsewhere. The ulceration has diminished in size in recent weeks. It is now very superficial, and nearly healed. Neuro oriented x3 and CN's II-XII intact bilaterally Sensorium / Orientation: awake, alert, oriented to person, oriented to place and oriented to time Psych Appearance: grossly normal and appropriate Attitude: calm Activity / Motor Behavior: appropriate eye contact Speech: normal speech Mood & Affect: euthymic mood Thought Process: normal thought process Thought Content: normal thought content Attention / Concentration: attention grossly intact Debridement Note Debridement Note No debridement was completed: No debridement was completed today Post-Debridement Measurements and Additional Note: Post-Debridement Measurements/Treatment WC - Nurse 1 - General Ulcer Assessment Start: 04/07/23 10:26 Freq: Status: Active Protocol: SAHRA Activity Type Activity Date Activity User E-sign Co-sign Detail Recorded Client Recorded Date Recorded By Document 04/07/23 10:29 [employer] 04/07/23 10:38 KW 04/07/23 10:29 WC - Today's Visit Information Type of service Follow-up Visit (Physician/UTILITY SPECIALIST ) Arrival Mode Wheelchair Patient Identification Verified (Name & Yes ) Height and Weight Body Mass Index (BMI) 41.5 BMI Classification Obese Vital Signs Temperature (97.8 F-99.1 F) 96.0 F L Temperature Source Temporal Pulse Rate (60-100) 114 H Pulse Location Monitor Respiratory Rate (12-18) 18 Respiratory rate source Observation Oxygen Delivery Method Room Air Blood Pressure (90/60-120/80) 146/74 H Blood Pressure Mean 98 Source Monitor Position Sitting Blood Pressure Location Left Forearm History Since Last Visit- (Skip if this is Patient's initial visit) Have you changed medications since your No last visit? Any new allergies or adverse reactions No Had a fall/change in ADL's that may No increase risk of falls Signs or symptoms of abuse and/or No neglect since last visit Have you been in the hospital since your No last visit? Has dressing in place as prescribed Yes Has compression in place as prescribed N/A Has offloadiing in place as prescribed N/A Experienced any changes in pain level or No management Left Footwear Regular Shoe Right Footwear Regular Shoe Pain Scale: 0-10 Numeric Is Patient Pain Free? Yes - Nurse 1 - General Ulcer Measurement Start: 04/07/23 10:26 Freq: Status: Active Protocol: Activity Type Activity Date Activity User E-sign Co-sign Detail Recorded Client Recorded Date Recorded By Document 04/07/23 10:29 [employer] 04/07/23 10:38 [employer] 04/07/23 10:29 Wound Center Nurse 1 #1 R Lower Buttock -Current Size (cm) - Length 0.1 -Current Size (cm) - Width 0.1 -Current Size (cm) - Depth 0.1 -Total Square Cm 0.01 -Texture (Traci-wound Skin Appearance) Assessed -Moisture (Traci-wound Skin Appearance) Assessed -Color (Traci-wound Skin Appearance) Assessed -Ulcer Cleansing Rinsed/ Irrigated with Saline WC - Nurse 3 - General Ulcer D/C NN Start: 04/07/23 10:26 Freq: Status: Active Protocol: Activity Type Activity Date Activity User E-sign Co-sign Detail Recorded Client Recorded Date Recorded By Document 04/07/23 10:46 KW Desktop 04/07/23 10:48 KW 04/07/23 10:46 Wound Care Center Nurse 3 -Primary Dressing Applied Mepilex Border -Mepilex Border 1 Pain Scale: 0-10 Numeric Is Patient Pain Free? Yes WC - Visit Discharge Discharge Condition Stable Ambulatory Status Wheelchair Transportation Private Auto Medication Reconcilliation completed & No provided to patient/care provider Clinical Summary of Care Provided Yes Assessment/Plan Assessment/Plan (1) Pressure ulcer of ischium, stage 2: CODE(S): L89.302 - Pressure ulcer of unspecified buttock, stage 2 QUALIFIERS: Laterality: right Qualified Code(s): L89.312 - Pressure ulcer of right buttock, stage 2 (2) Controlled type 2 diabetes mellitus with hyperglycemia: CODE(S): E11.65 - Type 2 diabetes mellitus with hyperglycemia (3) Debility: CODE(S): R53.81 - Other malaise (4) Immobility: CODE(S): Z74.09 - Other reduced mobility (5) Congestive heart failure: CODE(S): I50.9 - Heart failure, unspecified (6) Obstructive sleep apnea: CODE(S): G47.33 - Obstructive sleep apnea (adult) (pediatric) (7) Hyperlipidemia: CODE(S): E78.5 - Hyperlipidemia, unspecified (8) Urinary incontinence: CODE(S): R32 - Unspecified urinary incontinence (9) Lumbar radiculopathy, chronic: CODE(S): M54.16 - Radiculopathy, lumbar region (10) Neurogenic bladder: CODE(S): N31.9 - Neuromuscular dysfunction of bladder, unspecified (11) Morbid obesity with BMI of 40.0-44.9, adult: CODE(S): E66.01 - Morbid (severe) obesity due to excess calories; Z68.41 - Body mass index [BMI] 40.0-44.9, adult (12) Peripheral neuropathy: CODE(S): G62.9 - Polyneuropathy, unspecified (13) History of spinal cord injury: CODE(S): Z87.828 - Personal history of other (healed) physical injury and trauma (14) History of back surgery: CODE(S): Z98.890 - Other specified postprocedural states (15) History of rotator cuff surgery: CODE(S): Z98.890 - Other specified postprocedural states (16) S/P ORIF (open reduction internal fixation) fracture: CODE(S): Z98.890 - Other specified postprocedural states; Z87.81 - Personal history of (healed) traumatic fracture PLAN: Plan This is a 62-year-old diabetic male who presented with a stage II right ischial pressure ulceration. He was noted to spend long hours each day sitting in his wheelchair. He has been counseled as to the appropriate offloading measures. These measures have been discussed with the patient in great detail. He has been encouraged to reposition frequently. The decubitus position, supine or prone position, are all favorable to sitting. We have arranged for the patient to receive a Roho cushion, which he has now been implementing while sitting. The patient has been encouraged to optimize his nutritional intake, as well as to optimize his glycemic control. He is to avoid moisture accumulation in his undergarments when unable to control his urine. We had been using Promogran with a foam dressing topically, but the patient has voiced his preference for collagen hydrogel. Therefore, we are to continue using collagen hydrogel to pically to the right ischial pressure ulceration, which will be applied topically on a daily basis. The ulceration is now nearly completely healed, and very superficial. We will continue with a foam dressing as well. The patient and his family have been instructed in the appropriate means of application. The patient is to return for reevaluation in 2 weeks. It is anticipated that the ulceration may be healed upon his return visit. Total time: 24 minutes
[2023-04-21 10:39] VITALS: BP 120/74; PULSE 94; RESP 16; TEMP 35.4; BMI 41.5
--- NOTE | 2023-04-21 11:37 | PCM.WC.HP ---
History of Present Illness Date of Service: 04/21/23 Chief Complaint: Stage II right ischial pressure ulceration History of Wound: This is a 62-year-old obese diabetic male with a history of spinal cord injury which resulted from lumbar disc surgery more than 20 years ago. As result, the patient's mobility has been severely restricted, and he spends a great time each day sitting in his wheelchair. He has difficulty ambulating, though is able to drive an automobile. Approximately 10 weeks prior to his current admission, the patient developed an ulceration in the right ischial area. He and family members have been treating with topical antibiotic ointment. He lives alone, but has nearby family members who are able to assist him in his daily needs. In addition to diabetes mellitus, the patient also suffers from multiple other pre-existing medical conditions, which are listed below. The patient has recently undergone laboratory studies, performed on 02/17/2023, with results as follows: White blood count 5.7, hemoglobin 13.7, hematocrit 43.4, platelets 278,000, sodium 136, potassium 4.3, chloride 103, BUN 28, creatinine 0.96, glucose 169, calcium 9.3, glucose 150. A recent chest x-ray has revealed bilateral small pleural effusions. An EKG revealed sinus tachycardia, left axis deviation, right bundle branch block, and an infarct of indeterminate age. [facility] Medical History Debility Diabetes History of spinal cord injury Hyperlipidemia Immobility Lumbar radiculopathy, chronic Morbid obesity with BMI of 40.0-44.9, adult Neurogenic bladder Obstructive sleep apnea Peripheral neuropathy Pressure ulcer of ischium, stage 2 Urinary incontinence Home Medications Oxycodone-Acetaminophn 5-325/5 1 - 2 tab PO BID 01/10/16 [History Last Taken Unknown] pregabalin 100 mg capsule (Lyrica) 100 mg PO TID 01/10/16 [History Last Taken 02/24/23] furosemide 20 mg tablet (Lasix) 20 mg PO DAILY #30 tabs 02/17/23 [Rx Last Taken 02/24/23] metformin 500 mg tablet 500 mg PO BID 02/24/23 [History Last Taken Unknown] Allergy/AdvReac Type Severity Reaction Status Date / Time No Known Allergies Allergy Verified 11/21/23 12:12 Surgical History History of back surgery History of rotator cuff surgery S/P ORIF (open reduction internal fixation) fracture Social History Smoking Status: Never smoker Smokeless tobacco user: chewing tobacco Vital Signs Vital Signs Vital Signs: 04/21/23 10:39 Temperature 95.7 F L Temperature Source Temporal Pulse Rate 94 Respiratory Rate 16 Blood Pressure 120/74 Blood Pressure Mean 89 Blood Pressure Source Monitor Blood Pressure Position Sitting Blood Pressure Location Left Forearm Oxygen Delivery Method Room Air Weight Weight: 290 lb Body Mass Index (BMI) 41.5 Physical Exam Const alert, oriented x3 and no apparent distress Constitutional Narrative: Debility is noted. Patient appears to be somewhat physically deconditioned. General Appearance: cooperative, comfortable and well developed Orientation / Consciousness: awake, oriented to person, oriented to place and oriented to time HEENT normocephalic and head/scalp atraumatic Head and Scalp: normal to inspection, normocephalic and atraumatic External Ear: external ears normal Eyes PERRL and EOMs intact bilaterally General Eye: normal appearance of both eyes Resp normal respiratory effort, normal air movement, no retractions and no use of accessory muscles Effort and Inspection: able to speak in complete sentences Extremity no calf tenderness General Extremity: Negative for clubbing or cyanosis Skin Wound Narrative: Inspection of the buttock area reveals a stage II right ischial pressure ulceration. It is generally pink and healthy in appearance. There is no associated erythema. There is no obvious infection or cellulitis. Dimensions are documented elsewhere. The ulceration has diminished in size in recent weeks. It is now very superficial, and nearly healed. Neuro oriented x3 and CN's II-XII intact bilaterally Sensorium / Orientation: awake, alert, oriented to person, oriented to place and oriented to time Psych Appearance: grossly normal and appropriate Attitude: calm Activity / Motor Behavior: appropriate eye contact Speech: normal speech Mood & Affect: euthymic mood Thought Process: normal thought process Thought Content: normal thought content Attention / Concentration: attention grossly intact Debridement Note Debridement Note No debridement was completed: No debridement was completed today Post-Debridement Measurements and Additional Note: Post-Debridement Measurements/Treatment WC - Nurse 1 - General Ulcer Assessment Start: 01/09/24 10:26 Freq: Status: Active Protocol: SAHRA Activity Type Activity Date Activity User E-sign Co-sign Detail Recorded Client Recorded Date Recorded By Document 04/07/23 10:29 KW Desktop 04/07/23 10:38 KW Document 04/21/23 10:39 KW Desktop 04/21/23 10:52 KW 04/07/23 04/21/23 10:29 10:39 - Today's Visit Information Type of service Follow-up Visit Follow-up Visit (Physician/AIRCRAFT ENGINE INSTALLER (Physician/AIRCRAFT ENGINE INSTALLER ) ) Arrival Mode Wheelchair Wheelchair Patient Identification Verified (Name & Yes Yes ) Height and Weight Body Mass Index (BMI) 41.5 41.5 BMI Classification Obese Obese Vital Signs Temperature (97.8 F-99.1 F) 96.0 F L 95.7 F L Temperature Source Temporal Temporal Pulse Rate (60-100) 114 H 94 Pulse Location Monitor Monitor Respiratory Rate (12-18) 18 16 Respiratory rate source Observation Observation Oxygen Delivery Method Room Air Room Air Blood Pressure (90/60-120/80) 146/74 H 120/74 Blood Pressure Mean 98 89 Source Monitor Monitor Position Sitting Sitting Blood Pressure Location Left Forearm Left Forearm History Since Last Visit- (Skip if this is Patient's initial visit) Have you changed medications since your No Yes last visit? Any new allergies or adverse reactions No No Had a fall/change in ADL's that may No No increase risk of falls Signs or symptoms of abuse and/or No No neglect since last visit Have you been in the hospital since your No No last visit? Has dressing in place as prescribed Yes Yes Has compression in place as prescribed N/A N/A Has offloadiing in place as prescribed N/A N/A Experienced any changes in pain level or No No management Left Footwear Regular Shoe Regular Shoe Right Footwear Regular Shoe Regular Shoe Pain Scale: 0-10 Numeric Is Patient Pain Free? Yes Yes - Nurse 1 - General Ulcer Measurement Start: 04/07/23 10:26 Freq: Status: Active Protocol: Activity Type Activity Date Activity User E-sign Co-sign Detail Recorded Client Recorded Date Recorded By Document 04/07/23 10:29 KW Desktop 04/07/23 10:38 KW Document 04/21/23 10:39 KW Desktop 04/21/23 10:52 KW 04/07/23 04/21/23 10:29 10:39 Wound Center Nurse 1 #1 R Lower Buttock -Current Size (cm) - Length 0.1 0.4 -Current Size (cm) - Width 0.1 1.2 -Current Size (cm) - Depth 0.1 0.1 -Total Square Cm 0.01 0.48 -Date of Last Picture (Recall this 04/21/23 field) -Photo Taken Yes -Exudate Amt Small -Exudate Type Serous -Wound Margin Distinct, Outline Attached -Granulation Amt Large (67-100%) -Granulation Quality Red -Texture (Traci-wound Skin Appearance) Assessed Assessed -Moisture (Traci-wound Skin Appearance) Assessed Assessed, Maceration -Color (Traci-wound Skin Appearance) Assessed Assessed -Temperature (Traci-wound Skin No Abnormality Appearance) (Pt Warm) -Ulcer Cleansing Rinsed/ Rinsed/ Irrigated with Irrigated with Saline Saline -Anesthetic Used 5% Lidocaine Gel WC - Nurse 3 - General Ulcer D/C NN Start: 04/07/23 10:26 Freq: Status: Active Protocol: Activity Type Activity Date Activity User E-sign Co-sign Detail Recorded Client Recorded Date Recorded By Document 04/07/23 10:46 KW Desktop 04/07/23 10:48 KW 04/07/23 10:46 Wound Care Center Nurse 3 -Primary Dressing Applied Mepilex Border -Mepilex Border 1 Pain Scale: 0-10 Numeric Is Patient Pain Free? Yes WC - Visit Discharge Discharge Condition Stable Ambulatory Status Wheelchair Transportation Private Auto Medication Reconcilliation completed & No provided to patient/care provider Clinical Summary of Care Provided Yes Assessment/Plan Assessment/Plan (1) Pressure ulcer of ischium, stage 2: CODE(S): L89.302 - Pressure ulcer of unspecified buttock, stage 2 QUALIFIERS: Laterality: right Qualified Code(s): L89.312 - Pressure ulcer of right buttock, stage 2 (2) Controlled type 2 diabetes mellitus with hyperglycemia: CODE(S): E11.65 - Type 2 diabetes mellitus with hyperglycemia (3) Debility: CODE(S): R53.81 - Other malaise (4) Immobility: CODE(S): Z74.09 - Other reduced mobility (5) Congestive heart failure: CODE(S): I50.9 - Heart failure, unspecified (6) Obstructive sleep apnea: CODE(S): G47.33 - Obstructive sleep apnea (adult) (pediatric) (7) Hyperlipidemia: CODE(S): E78.5 - Hyperlipidemia, unspecified (8) Urinary incontinence: CODE(S): R32 - Unspecified urinary incontinence (9) Lumbar radiculopathy, chronic: CODE(S): M54.16 - Radiculopathy, lumbar region (10) Neurogenic bladder: CODE(S): N31.9 - Neuromuscular dysfunction of bladder, unspecified (11) Morbid obesity with BMI of 40.0-44.9, adult: CODE(S): E66.01 - Morbid (severe) obesity due to excess calories; Z68.41 - Body mass index [BMI] 40.0-44.9, adult (12) Peripheral neuropathy: CODE(S): G62.9 - Polyneuropathy, unspecified (13) History of spinal cord injury: CODE(S): Z87.828 - Personal history of other (healed) physical injury and trauma (14) History of back surgery: CODE(S): Z98.890 - Other specified postprocedural states (15) History of rotator cuff surgery: CODE(S): Z98.890 - Other specified postprocedural states (16) S/P ORIF (open reduction internal fixation) fracture: CODE(S): Z98.890 - Other specified postprocedural states; Z87.81 - Personal history of (healed) traumatic fracture PLAN: Plan This is a 62-year-old diabetic male who presented with a stage II right ischial pressure ulceration. He was noted to spend long hours each day sitting in his wheelchair. He has been counseled as to the appropriate offloading measures. These measures have been discussed with the patient in great detail. He has been encouraged to reposition frequently. The decubitus position, supine or prone position, are all favorable to sitting. We have arranged for the patient to receive a Roho cushion, which he has now been implementing while sitting. The patient has been encouraged to optimize his nutritional intake, as well as to optimize his glycemic control. He is to avoid moisture accumulation in his undergarments when unable to control his urine. We had been using Promogran with a foam dressing topically, but the patient has voiced his preference for collagen hydrogel. Therefore, we are to continue using collagen hydrogel topically to the right ischial pressure ulceration, which will be applied topically on a daily basis. The ulceration is now nearly completely healed, and very superficial. We will continue with a foam dressing as well. The patient and his family have been instructed in the appropriate means of application. The patient is to return for reevaluation in 2 weeks. It is anticipated that the ulceration may be healed upon his return visit. The patient indicates that he is scheduled to undergo a heart cath at [place] later this week. Total time: 22 minutes
== END 2023-04-29 23:59 | disposition home or self-care (01) ==
LOC: WC 11:00
PROVIDERS: PCP Family Medicine; Referring Provider Family Medicine; Visit Provider Surgery
DX: L89.312 Pressure ulcer of right buttock, stage 2 (principal); I50.9 Heart failure, unspecified; E11.42 Type 2 diabetes mellitus with diabetic polyneuropathy; E66.01 Morbid (severe) obesity due to excess calories; Z68.41 Body mass index [BMI] 40.0-44.9, adult; E78.5 Hyperlipidemia, unspecified; R53.81 Other malaise; R32 Unspecified urinary incontinence; N31.9 Neuromuscular dysfunction of bladder, unspecified; Z74.09 Other reduced mobility; M54.16 Radiculopathy, lumbar region; G47.33 Obstructive sleep apnea (adult) (pediatric); F17.220 Nicotine dependence, chewing tobacco, uncomplicated; Z79.891 Long term (current) use of opiate analgesic; Z79.84 Long term (current) use of oral hypoglycemic drugs; Z79.899 Other long term (current) drug therapy
CPT/HCPCS: 99213; G0463